=== PATIENT | female | born 1970 | race Caucasian/White ===

== ENCOUNTER → 2020-06-17 | Outpatient (CLI) | payer BC | LOC: LAB 14:18 | PROVIDERS: ATTEND Pediatrics | DX: Z20.822 Contact with and (suspected) exposure to COVID-19 (principal) ==

== ENCOUNTER → 2020-06-29 | Outpatient (CLI) | payer BC | LOC: LAB 14:37 | PROVIDERS: ATTEND Pediatrics | DX: U07.1 COVID-19 (principal) ==

== ENCOUNTER → 2020-07-09 | Outpatient (CLI) | payer BC | LOC: LAB 09:46 | PROVIDERS: ATTEND Pediatrics | DX: U07.1 COVID-19 (principal) ==